=== PATIENT | male | born 1990 | race African-American/Black ===

== ENCOUNTER 2021-02-26 23:26 | Emergency (ER) | payer OTHER ==
[~2021-02-26] VITALS: Ht 195.6 cm; Wt 93.0 kg
--- NOTE | 2021-02-26 23:55 | NUR ---
Note estebanone in EDM - 02/27/21 at 0502 by NISREEN Pt ok to discharge home per Dr Novak. Patient discharged to home in stable condition. Written and verbal after care instructions given. Patient verbalizes understanding of instruction.Patient is awake and alert to self, day, and place. pt ambulatory with a steady gait
[2021-02-26] MEDS ORDERED: HYDROCODONE/APAP 5/325MG TABLET ONE (23:56)
[2021-02-27] MEDS ORDERED: HYDROCODONE/APAP 5/325MG TABLET PO ONE
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
[2021-02-27] MEDS ORDERED: HYDR-3972 PO (00:49)
--- NOTE | 2021-02-27 00:50 | NUR ---
Pt ok to discharge home per Dr Novak. Patient discharged to home in stable condition. Written and verbal after care instructions given. Patient verbalizes understanding of instruction.Patient is awake and alert to self, day, and place. pt ambulatory with a steady gait
[2021-02-27 05:03] VITALS: BP 130/74
== END 2021-02-27 00:45 | disposition home or self-care (01) ==
LOC: ER 23:26
DX: M54.5 Low back pain (principal); J45.909 Unspecified asthma, uncomplicated; Y08.89XA Assault by other specified means, initial encounter; Y93.89 Activity, other specified; Y92.89 Other specified places as the place of occurrence of the external cause; Y99.8 Other external cause status
CPT/HCPCS: 72131-TC